=== PATIENT | male | born 2000 | race Caucasian/White ===

== ENCOUNTER 2019-11-04 03:20 | Emergency (ER) | payer BC ==
[~2019-11-04] VITALS: Ht 185.4 cm; Wt 84.1 kg
[2019-11-04 03:31] VITALS: BP 121/83; TEMP 98.2
[2019-11-04 04:19] VITALS: PULSE 80
== END 2019-11-04 04:19 | disposition home or self-care (01) ==
LOC: COL.ER 03:20
DX: S61.431A Puncture wound without foreign body of right hand, initial encounter (principal); W22.8XXA Striking against or struck by other objects, initial encounter